=== PATIENT | male | born 1945 | race Two or more races ===

== ENCOUNTER 2020-01-26 23:56 | Emergency (ER) | payer OTHER ==
[~2020-01-26] VITALS: Ht 162.6 cm; Wt 59.4 kg
[~2020-01-26 23:56] MED LIST: ANT12.5 PO; ASPIRIN CHILDRE81 MG PO; ATORVASTATIN CA40 M1 PO; LIPI20 PO; PROPECIA1 MG PO
[2020-01-27 00:03] VITALS: Ht 162.6 cm; Wt 59.4 kg
[2020-01-27 02:14] VITALS: BP 150/78
== END 2020-01-27 02:37 | disposition left against medical advice (07) ==
LOC: ED 23:56
DX: R42 Dizziness and giddiness (principal); K21.9 Gastro-esophageal reflux disease without esophagitis
CPT/HCPCS: 82962